=== PATIENT | male | born 1975 | race Caucasian/White ===

== ENCOUNTER 2019-10-29 15:23 | Emergency (ER) | payer SELFPAY ==
[~2019-10-29] VITALS: Ht 205.7 cm; Wt 90.7 kg
[~2019-10-29 15:23] MED LIST: AMOX1XR PO; AMOX500 PO; HYDACE5 PO; HYDHOMSY PO; PENVK500 PO; PROM25 PO
[2019-10-29] MEDS ORDERED: MOTION RELIEF25 MG PO (17:27)
== END 2019-10-29 17:41 | disposition home or self-care (01) ==
LOC: ER 15:23
DX: J06.9 Acute upper respiratory infection, unspecified (principal); R42 Dizziness and giddiness; Z88.1 Allergy status to other antibiotic agents; F17.220 Nicotine dependence, chewing tobacco, uncomplicated
CPT/HCPCS: 99283

== ENCOUNTER 2020-07-25 13:43 | Emergency (ER) | payer SELFPAY ==
[~2020-07-25] VITALS: Ht 205.7 cm; Wt 81.7 kg
[~2020-07-25 13:43] MED LIST changes: +MOTION RELIEF25 MG PO
[2020-07-25 16:30] LABS: BASOPHILS ABSOLUTE AUTO 0.02 K/mm3 (0.00-0.23); BASOPHILS PERCENT AUTO 0 % (0-2); EOSINOPHILS ABSOLUTE AUTO 0.07 K/mm3 (0.00-0.68); EOSINOPHILS PERCENT AUTO 1 % (0-6); Hematocrit 46.7 % (37.0-53.0); Hemoglobin 15.5 g/dL (13.5-17.5); IMMATURE GRAN ABSOLUTE AUTO 0.02 K/mm3 (0.00-0.10); IMMATURE GRAN PERCENT AUTO 0 % (0-1); LYMPHOCYTES ABSOLUTE AUTO 2.35 K/mm3 (0.84-5.20); LYMPHOCYTES PERCENT AUTO 31 % (21-46); MONOCYTES ABSOLUTE AUTO 0.27 K/mm3 (0.16-1.47); MONOCYTES PERCENT AUTO 4 % (4-13); Mean Corpuscular HGB 30.2 pg (26.0-34.0); Mean Corpuscular HGB Conc 33.2 g/dL (31.5-36.5); Mean Corpuscular Volume 91 fL (80-100); Mean Platelet Volume 8.9 fL (9.1-12.4); NEUTROPHILS ABSOLUTE AUTO 4.86 K/mm3 (1.96-9.15); NEUTROPHILS PERCENT AUTO 64 % (41-73); Platelet Count 252 K/mm3 (150-400); RDW Coefficient Variation 12.2 % (11.7-14.2); Red Blood Cell Count 5.14 M/mm3 (4.30-5.90); White Blood Cell Count 7.59 K/mm3 (4.00-11.30)
[2020-07-25 16:33] LABS: Source, Urine Clean Catch
[2020-07-25 16:39] LABS: Bilirubin, Urine Neg (Neg); Blood, Urine Neg (Neg); Glucose Qualitative, Urine Neg (Neg); Ketones, Urine Neg (Neg); Leukocyte Esterase, Urine Neg (Neg); Nitrite, Urine Neg (Neg); Protein, Urine Neg (Neg); Specific Gravity, Urine 1.005 (1.003-1.022); Urobilinogen, Urine NORM (Normal)
[2020-07-25 16:48] LABS: Appearance, Urine Clear (Clear); Color, Urine Yellow (P-Yellow)
[2020-07-25 16:50] LABS: Alanine Aminotransfer (ALT/SGP 32 U/L (12-78); Albumin, Blood 4.5 g/dL (3.4-5.0); Albumin/Globulin Ratio 1.1 (0.8-1.8); Alk Phos 50 U/L (50-136); Anion Gap 3 mmol/L (6-16); Aspartate Aminotrans (AST/SGOT 15 U/L (12-37); Bilirubin, Total 0.5 mg/dL (0.1-1.0); Blood Urea Nitrogen 10 mg/dL (8-24); Bun/Creatinine Ratio 12.2 (12.0-20.0); CO2, Blood 29 mmol/L (21-32); Calcium, Blood 9.6 mg/dL (8.5-10.1); Chloride, Blood 107 mmol/L (98-108); Creatinine, Blood 0.82 mg/dL (0.60-1.20); Glomerular Filtration Rate >60 (60-); Glucose, Blood 79 mg/dL (70-99); Potassium, Blood 3.9 mmol/L (3.5-5.5); Sodium, Blood 139 mmol/L (136-145); Total Protein, Blood 8.5 g/dL (6.4-8.2)
[2020-07-25] MEDS ORDERED: ONDA4ODT MM (16:56)
== END 2020-07-25 17:10 | disposition home or self-care (01) ==
LOC: ER 13:43
PROVIDERS: Emergency Medicine
DX: R11.2 Nausea with vomiting, unspecified (principal); R53.1 Weakness; R42 Dizziness and giddiness; F17.200 Nicotine dependence, unspecified, uncomplicated; Z88.1 Allergy status to other antibiotic agents
CPT/HCPCS: 80053; 81003; 85025; 93005; 93010; 99283-25

== ENCOUNTER 2020-09-13 11:45 | Emergency (ER) | payer SELFPAY ==
[~2020-09-13] VITALS: Ht 205.7 cm; Wt 90.7 kg
[~2020-09-13 11:45] MED LIST changes: +ONDA4ODT MM
[2020-09-13] MEDS ORDERED: TIZA4 PO (16:35)
[2020-09-13] MEDS ORDERED: KETO10 PO (16:35)
== END 2020-09-13 16:50 | disposition home or self-care (01) ==
LOC: ER 11:45
DX: S33.9XXA Sprain of unspecified parts of lumbar spine and pelvis, initial encounter (principal); F17.210 Nicotine dependence, cigarettes, uncomplicated; Z88.1 Allergy status to other antibiotic agents; Z79.899 Other long term (current) drug therapy; X50.0XXA Overexertion from strenuous movement or load, initial encounter
CPT/HCPCS: 96372; 99283-25; A9270; J1885

== ENCOUNTER 2020-09-20 12:48 | Emergency (ER) | payer SELFPAY ==
[~2020-09-20] VITALS: Ht 205.7 cm; Wt 90.7 kg
[~2020-09-20 12:48] MED LIST changes: +KETO10 PO; +TIZA4 PO
[2020-09-20] MEDS ORDERED: Prednisone20 MG PO (16:48)
[2020-09-20] MEDS ORDERED: Neurontin 300300 MG PO (16:48)
== END 2020-09-20 17:13 | disposition home or self-care (01) ==
LOC: ER 12:48
DX: M54.16 Radiculopathy, lumbar region (principal); F17.210 Nicotine dependence, cigarettes, uncomplicated; Z88.1 Allergy status to other antibiotic agents
CPT/HCPCS: 96372; 99283-25; J1885; J7512